=== PATIENT | female | born 1945 | race Caucasian/White ===

== ENCOUNTER 2019-03-13 06:04 | Inpatient (IN) ==
[~2019-03-13 06:04] MED LIST: Vancomycin 1,000 MG, Sodium Chloride IRRigation 1,000 ML IR ONE
[2019-03-13] MEDS ORDERED: NiCARdipine 2.5 MG/10 ML Syringe IVPB ONE (06:20)
[2019-03-13] MEDS ORDERED: Albuterol 2.5 MG/3 ML NEBULIZER IH PRN (06:21)
[2019-03-13] MEDS ORDERED: CeFAZolin Syr 2,000MG/20 ML 2,000 MG/20 ML SYRINGE IVPB ONE (06:21)
[2019-03-13] MEDS ORDERED: Heparin 1,000 UNITS/500 mL 500 ML ONE ×2 (06:22→07:22)
[2019-03-13] MEDS ORDERED: *HR* Etomidate 40 MG/20 ML VIAL IVP ONE (06:25)
[2019-03-13] MEDS ORDERED: Lidocaine -MPF 2% 2 ML VIAL ONE (06:25)
[2019-03-13] MEDS ORDERED: *HR* Succinylcholine 200 MG/10 ML VIAL IVP ONE (06:26)
[2019-03-13] MEDS ORDERED: *HR* Rocuronium Bromide 50 MG/5 ML VIAL ONE ×2 (06:26→10:36)
[2019-03-13] MEDS ORDERED: *HR* FentaNYL (PF) 100 MCG/2 ML VIAL ONE ×2 (06:29→12:35)
[2019-03-13] MEDS ORDERED: *HR* Midazolam HCl 5 MG/5 ML VIAL IVP ONE (06:30)
[2019-03-13] MEDS ORDERED: Norepinephrine 4 MG in 0.9 % Sodium Chloride 250 ML IVC PRN (06:30)
[2019-03-13] MEDS ORDERED: Ringers Solution, Lactated 1,000 ML IVC SCH ×2 (06:30→07:15)
[2019-03-13] MEDS ORDERED: *HR* PHENYLEPHRINE 1,000 MCG/10 ML SYRINGE IVP ONE ×3 (06:33→13:23)
[2019-03-13] MEDS ORDERED: *HR* Heparin 5,000 UNIT/ML VIAL ONE (06:36)
[2019-03-13] MEDS ORDERED: Lidocaine -MPF 2% 5 ML VIAL ONE (07:07)
[2019-03-13] MEDS ORDERED: EPHEDrine 50 MG/ML VIAL ONE ×2 (07:31→10:56)
[2019-03-13] MEDS ORDERED: Vancomycin 1,000 MG VIAL ONE ×2 (07:46→07:59)
[2019-03-13 09:23] LABS: ABG Base Excess -3 mEq/L (-2 to 3); ABG Chloride 110 mEq/L (98-107); ABG Glucose 103 mg/dL (60-95); ABG HCO3 23 mEq/L (21-27); ABG Ionized Calcium 1.11 mmol/L (1.15-1.35); ABG Oxygen Saturation 99 % (95-98); ABG PCO2 43 mmHg (35-45); ABG PH 7.33 pH Units (7.32-7.45); ABG PO2 134 mmHg (85-104); ABG TCO2 24 mEq/L (20-26)
[2019-03-13 10:51] LABS: ABG Base Excess -2 mEq/L (-2 to 3); ABG Chloride 107 mEq/L (98-107); ABG Glucose 147 mg/dL (60-95); ABG HCO3 23 mEq/L (21-27); ABG Ionized Calcium 1.21 mmol/L (1.15-1.35); ABG Oxygen Saturation 99 % (95-98); ABG PCO2 41 mmHg (35-45); ABG PH 7.36 pH Units (7.32-7.45); ABG PO2 132 mmHg (85-104); ABG TCO2 24 mEq/L (20-26)
[2019-03-13 12:04] LABS: ABG Base Excess -7 mEq/L (-2 to 3); ABG Chloride 110 mEq/L (98-107); ABG Glucose 182 mg/dL (60-95); ABG HCO3 20 mEq/L (21-27); ABG Ionized Calcium 1.17 mmol/L (1.15-1.35); ABG Oxygen Saturation 99 % (95-98); ABG PCO2 41 mmHg (35-45); ABG PH 7.29 pH Units (7.32-7.45); ABG PO2 136 mmHg (85-104); ABG TCO2 21 mEq/L (20-26)
[2019-03-13] MEDS ORDERED: Ondansetron 4 MG/2 ML VIAL IVP PRN ×2 (12:28→15:42)
[2019-03-13] MEDS ORDERED: *HR* HYDROmorphone (PF) 1 MG/ML SYRINGE IVP PRN (12:28)
[2019-03-13] MEDS ORDERED: *HR* OxyCODONE/APAP 5/325 TABLET PO PRN (12:28)
[2019-03-13] MEDS ORDERED: Naloxone 0.4 MG/ML INJ IVP PRN ×2 (12:28→15:42)
[2019-03-13] MEDS ORDERED: 0.9 % Sodium Chloride 500 ML IVC PRN (12:28)
[2019-03-13] MEDS ORDERED: Bupivacaine-MPF 0.5% 25 ML, FentaNYL (PF) 250 MCG in 0.9 % Sodium Chloride 80 ML EP SCH (12:30)
[2019-03-13] MEDS ORDERED: Sodium Bicarbonate 50 MEQ/50 ML VIAL ONE (13:04)
[2019-03-13 13:06] LABS: ABG Base Excess -10 mEq/L (-2 to 3); ABG Chloride 111 mEq/L (98-107); ABG Glucose 161 mg/dL (60-95); ABG HCO3 18 mEq/L (21-27); ABG Ionized Calcium 1.09 mmol/L (1.15-1.35); ABG Oxygen Saturation 99 % (95-98); ABG PCO2 48 mmHg (35-45); ABG PH 7.19 pH Units (7.32-7.45); ABG PO2 162 mmHg (85-104); ABG TCO2 20 mEq/L (20-26)
[2019-03-13 13:28] LABS: ABG Base Excess 0 mEq/L (-2 to 3); ABG Chloride 109 mEq/L (98-107); ABG Glucose 146 mg/dL (60-95); ABG HCO3 25 mEq/L (21-27); ABG Ionized Calcium 1.03 mmol/L (1.15-1.35); ABG Oxygen Saturation 100 % (95-98); ABG PCO2 39 mmHg (35-45); ABG PH 7.41 pH Units (7.32-7.45); ABG PO2 163 mmHg (85-104); ABG TCO2 26 mEq/L (20-26)
[2019-03-13] MEDS ORDERED: *HR* Labetalol 20 MG/4 ML SYRINGE IVP PRN (15:42)
[2019-03-13 16:13] LABS: VBG Ionized Calcium 1.23 mmol/L (1.15-1.35)
[2019-03-13 16:13] LABS: Basophils % 0.3 %; Eosinophils % 0.1 %; Hematocrit 41.2 % (35.3-44.9); Hemoglobin 14.1 g/dL (11.5-15.4); Immature Granulocytes % 0.4 % (0-4); Lymphocytes # 1.7 K/mcL (0.6-4.6); Lymphocytes % 11.5 %; Mean Corpuscular HGB Conc 34.2 g/dL (31.6-35.5); Mean Corpuscular Hemoglobin 30.8 pg (28.0-33.3); Monocytes # 0.8 K/mcL (0.0-1.3); Monocytes % 5.5 %; Neutrophils # 11.9 K/mcL (1.6-8.9); Platelet Count 193 K/mcL (140-400); Red Blood Count 4.58 M/mcL (3.82-4.97); Red Cell Distribution Width 13.3 % (11.5-14.5); Segmented Neutrophils % 82.2 %; White Blood Count 14.4 K/mcL (4.3-11.1)
[2019-03-13] MEDS: ceFAZolin 2,000 MG in 0.9 % Sodium Chloride 100 ML IVPB SCH (16:14)
[2019-03-13 16:19] LABS: INR 1.1; Prothrombin Time 12.5 Seconds (9.4-12.1)
[2019-03-13 16:22] LABS: Activated Partial Thrombo Time 31.9 Seconds (26.0-36.0)
[2019-03-13 16:24] LABS: BUN/Creatinine Ratio 32 (6-26); Blood Urea Nitrogen 24 mg/dL (8-23); Calcium 8.7 mg/dL (8.6-10.3); Carbon Dioxide 24 mEq/L (23-29); Chloride 111 mEq/L (98-107); Glucose 140 mg/dL (70-105); Magnesium 1.6 mg/dL (1.6-2.6); Osmolality,Calculated 304 (280-300); Sodium 144 mEq/L (136-145); eGFR For African Americans > 60 (> 60); eGFR For Non-African Americans > 60 (> 60)
[2019-03-13 17:33] LABS: Troponin I < 0.03 ng/mL (< 0.04)
[2019-03-13] MEDS ORDERED: Potassium Chloride 40 MEQ/200 ML BAG IVPB PRN (18:08)
[2019-03-13] MEDS ORDERED: Calcium Gluconate 1gm/50mL 1 GM/50 ML BAG IVPB PRN (18:08)
[2019-03-13] MEDS: *HR* Metoprolol 5 MG/5 ML VIAL IVP SCH (19:52)
[2019-03-13] MEDS: 0.9 % Sodium Chloride 1,000 ML IVC SCH (19:57)
[2019-03-13] MEDS: Budesonide/Formoterol 160/4.5 1 PUFF INH IH SCH (20:42)
[2019-03-14] MEDS: ceFAZolin 2,000 MG in 0.9 % Sodium Chloride 100 ML IVPB SCH (00:18)
[2019-03-14] MEDS: *HR* Metoprolol 5 MG/5 ML VIAL IVP SCH ×5 (00:18→23:40)
[2019-03-14 03:55] LABS: Basophils % 0.1 %; Hematocrit 37.5 % (35.3-44.9); Hemoglobin 12.8 g/dL (11.5-15.4); Immature Granulocytes % 0.3 % (0-4); Lymphocytes # 0.9 K/mcL (0.6-4.6); Lymphocytes % 6.1 %; Mean Corpuscular HGB Conc 34.1 g/dL (31.6-35.5); Mean Corpuscular Hemoglobin 30.8 pg (28.0-33.3); Mean Corpuscular Volume 90.4 fL (83.0-100.0); Mean Platelet Volume 9.2 fL (9.4-12.4); Monocytes % 6.4 %; Neutrophils # 12.9 K/mcL (1.6-8.9); Platelet Count 163 K/mcL (140-400); Red Blood Count 4.15 M/mcL (3.82-4.97); Red Cell Distribution Width 13.5 % (11.5-14.5); Segmented Neutrophils % 87.1 %; White Blood Count 14.8 K/mcL (4.3-11.1)
[2019-03-14 04:02] LABS: VBG Ionized Calcium 1.16 mmol/L (1.15-1.35)
[2019-03-14 04:12] LABS: Magnesium 2.4 mg/dL (1.6-2.6); Phosphorous 3.7 mg/dL (2.7-4.5)
[2019-03-14 04:14] LABS: BUN/Creatinine Ratio 23 (6-26); Blood Urea Nitrogen 21 mg/dL (8-23); Calcium 8.1 mg/dL (8.6-10.3); Carbon Dioxide 24 mEq/L (23-29); Chloride 111 mEq/L (98-107); Glucose 155 mg/dL (70-105); Osmolality,Calculated 304 (280-300); Potassium 4.2 mEq/L (3.5-5.1); Sodium 144 mEq/L (136-145); eGFR For African Americans > 60 (> 60); eGFR For Non-African Americans > 60 (> 60)
[2019-03-14] MEDS ORDERED: *HR* Heparin 5,000 UNIT/ML VIAL SQ SCH ×2 (06:00→18:00)
[2019-03-14] MEDS: Budesonide/Formoterol 160/4.5 1 PUFF INH IH SCH ×3 (08:11→20:49)
[2019-03-14] MEDS: 0.9 % Sodium Chloride 1,000 ML IVC SCH ×3 (08:30→20:18)
[2019-03-14] MEDS ORDERED: Ondansetron 4 MG/2 ML VIAL IVP PRN (08:34)
[2019-03-14] MEDS ORDERED: Naloxone 0.4 MG/ML INJ IVP PRN (08:34)
[2019-03-14] MEDS ORDERED: *HR* Labetalol 20 MG/4 ML SYRINGE IVP PRN (08:34)
[2019-03-14] MEDS ORDERED: Potassium Chloride 40 MEQ/200 ML BAG IVPB PRN (08:34)
[2019-03-14] MEDS ORDERED: Calcium Gluconate 1gm/50mL 1 GM/50 ML BAG IVPB PRN (08:34)
[2019-03-14] MEDS ORDERED: 0.9 % Sodium Chloride 1,000 ML IVC SCH (08:34)
[2019-03-14] MEDS ORDERED: Tiotropium 18 MCG inhalation IH SCH (10:00)
[2019-03-14] MEDS: Tiotropium 18 MCG inhalation IH SCH (10:04)
[2019-03-14] MEDS ORDERED: *HR* HYDROmorphone 2 MG/ML SYRINGE IVP PRN (12:54)
[2019-03-14] MEDS ORDERED: 0.9 % Sodium Chloride 500 ML IVC ONE (13:03)
[2019-03-14] MEDS: Bupivacaine-MPF 0.5% 25 ML, FentaNYL (PF) 250 MCG in 0.9 % Sodium Chloride 80 ML EP SCH (14:00)
[2019-03-14] MEDS: *HR* Heparin 5,000 UNIT/ML VIAL SQ SCH (16:12)
[2019-03-14] MEDS: Aspirin Enteric Coated 81 MG Tablet PO SCH (16:12)
[2019-03-14] MEDS ORDERED: Aspirin Enteric Coated 81 MG Tablet PO SCH (18:00)
[2019-03-15 03:35] LABS: VBG Ionized Calcium 1.15 mmol/L (1.15-1.35)
[2019-03-15 03:55] LABS: BUN/Creatinine Ratio 29 (6-26); Blood Urea Nitrogen 27 mg/dL (8-23); Calcium 8.4 mg/dL (8.6-10.3); Carbon Dioxide 27 mEq/L (23-29); Chloride 113 mEq/L (98-107); Glucose 142 mg/dL (70-105); Magnesium 2.3 mg/dL (1.6-2.6); Osmolality,Calculated 308 (280-300); Phosphorous 2.7 mg/dL (2.7-4.5); Potassium 4.1 mEq/L (3.5-5.1); Sodium 145 mEq/L (136-145); eGFR For African Americans > 60 (> 60); eGFR For Non-African Americans 60 (> 60)
[2019-03-15] MEDS: *HR* Metoprolol 5 MG/5 ML VIAL IVP SCH ×3 (04:23→17:12)
[2019-03-15] MEDS: *HR* Heparin 5,000 UNIT/ML VIAL SQ SCH ×2 (04:23→14:39)
[2019-03-15 04:25] LABS: Basophils % 0.1 %; Hematocrit 35.2 % (35.3-44.9); Immature Granulocytes % 0.5 % (0-4); Lymphocytes # 1.1 K/mcL (0.6-4.6); Lymphocytes % 5.9 %; Mean Corpuscular HGB Conc 34.1 g/dL (31.6-35.5); Mean Corpuscular Hemoglobin 31.5 pg (28.0-33.3); Mean Corpuscular Volume 92.4 fL (83.0-100.0); Mean Platelet Volume 9.4 fL (9.4-12.4); Monocytes # 1.3 K/mcL (0.0-1.3); Monocytes % 6.9 %; Neutrophils # 16.6 K/mcL (1.6-8.9); Platelet Count 167 K/mcL (140-400); Red Blood Count 3.81 M/mcL (3.82-4.97); Red Cell Distribution Width 13.9 % (11.5-14.5); Segmented Neutrophils % 86.6 %; White Blood Count 19.1 K/mcL (4.3-11.1)
[2019-03-15] MEDS: 0.9 % Sodium Chloride 1,000 ML IVC SCH (08:50)
[2019-03-15] MEDS ORDERED: 0.9 % Sodium Chloride 1,000 ML IVC SCH (09:43)
[2019-03-15] MEDS: Budesonide/Formoterol 160/4.5 1 PUFF INH IH SCH ×2 (09:56→20:00)
[2019-03-15] MEDS: Tiotropium 18 MCG inhalation IH SCH (09:57)
[2019-03-15] MEDS ORDERED: Bisacodyl 10 MG RECTAL SUPPOSITORY RC ONE (10:00)
[2019-03-15] MEDS: Aspirin Enteric Coated 81 MG Tablet PO SCH (17:58)
[2019-03-15] MEDS ORDERED: *HR* Heparin 5,000 UNIT/ML VIAL SQ SCH (18:00)
[2019-03-15] MEDS: Bupivacaine-MPF 0.5% 25 ML, FentaNYL (PF) 250 MCG in 0.9 % Sodium Chloride 80 ML EP SCH (22:22)
[2019-03-16 00:06] LABS: ABG Base Excess 7 mEq/L (-2 to 3); ABG HCO3 29 mEq/L (21-27); ABG Oxygen Saturation 92 % (95-98); ABG PCO2 34 mmHg (35-45); ABG PH 7.55 pH Units (7.32-7.45); ABG PO2 54 mmHg (85-104); ABG TCO2 30 mEq/L (20-26)
[2019-03-16] MEDS: *HR* Metoprolol 5 MG/5 ML VIAL IVP SCH ×4 (00:30→19:00)
[2019-03-16] MEDS: *HR* Heparin 5,000 UNIT/ML VIAL SQ SCH ×3 (05:02→19:00)
[2019-03-16 06:05] LABS: Basophils % 0.2 %; Hematocrit 33.3 % (35.3-44.9); Hemoglobin 11.3 g/dL (11.5-15.4); Immature Granulocytes % 1.2 % (0-4); Lymphocytes # 1.2 K/mcL (0.6-4.6); Lymphocytes % 6.5 %; Mean Corpuscular HGB Conc 33.9 g/dL (31.6-35.5); Mean Corpuscular Hemoglobin 30.5 pg (28.0-33.3); Mean Platelet Volume 9.5 fL (9.4-12.4); Monocytes % 5.4 %; Neutrophils # 15.6 K/mcL (1.6-8.9); Platelet Count 186 K/mcL (140-400); Red Cell Distribution Width 13.7 % (11.5-14.5); Segmented Neutrophils % 86.7 %; White Blood Count 17.9 K/mcL (4.3-11.1)
[2019-03-16 06:14] LABS: VBG Ionized Calcium 1.12 mmol/L (1.15-1.35)
[2019-03-16 06:24] LABS: Magnesium 2.4 mg/dL (1.6-2.6); Phosphorous 2.9 mg/dL (2.7-4.5)
[2019-03-16 06:29] LABS: BUN/Creatinine Ratio 38 (6-26); Blood Urea Nitrogen 25 mg/dL (8-23); Calcium 8.3 mg/dL (8.6-10.3); Carbon Dioxide 29 mEq/L (23-29); Chloride 115 mEq/L (98-107); Glucose 132 mg/dL (70-105); Osmolality,Calculated 324 (280-300); Potassium 2.8 mEq/L (3.5-5.1); Sodium 154 mEq/L (136-145); eGFR For African Americans > 60 (> 60); eGFR For Non-African Americans > 60 (> 60)
[2019-03-16] MEDS: Budesonide/Formoterol 160/4.5 1 PUFF INH IH SCH ×2 (07:38→22:27)
[2019-03-16] MEDS: Tiotropium 18 MCG inhalation IH SCH (07:40)
[2019-03-16] MEDS ORDERED: Isovue-370 500 ML BOTTLE IVP ONE (07:53)
[2019-03-16] MEDS ORDERED: Aminoglycoside Consult 1 EACH MC ONE (08:28)
[2019-03-16] MEDS ORDERED: Potassium Phosphate 44 MEQ in 0.9 % Sodium Chloride 250 ML IVPB PRN (09:01)
[2019-03-16] MEDS ORDERED: Potassium Chloride 40 MEQ, Lidocaine 1% 2 ML in 0.9 % Sodium Chloride 500 ML IVPB ONE (09:38)
[2019-03-16] MEDS: Ipratropium/Albuterol Neb 3 ML IH SCH ×3 (11:11→22:36)
[2019-03-16] MEDS: Cefepime HCl 1,000 MG in Water for inj. (sterile) 10 ML IVP SCH (12:07)
[2019-03-16] MEDS: MethylPREDNISolone 40 MG/ML VIAL IVP SCH (13:51)
[2019-03-16] MEDS ORDERED: MethylPREDNISolone 40 MG/ML VIAL IVP SCH (18:00)
[2019-03-16] MEDS: Aspirin Enteric Coated 81 MG Tablet PO SCH (19:00)
[2019-03-16] MEDS: Bupivacaine-MPF 0.5% 25 ML, FentaNYL (PF) 250 MCG in 0.9 % Sodium Chloride 80 ML EP SCH (22:46)
[2019-03-16] MEDS: Potassium Chloride 40 MEQ, Lidocaine 1% 2 ML in 0.9 % Sodium Chloride 500 ML IVPB PRN (22:59)
[2019-03-17] MEDS: Cefepime HCl 1,000 MG in Water for inj. (sterile) 10 ML IVP SCH ×3 (01:01→23:44)
[2019-03-17] MEDS: MethylPREDNISolone 40 MG/ML VIAL IVP SCH ×3 (01:02→23:44)
[2019-03-17] MEDS: *HR* Metoprolol 5 MG/5 ML VIAL IVP SCH ×5 (01:07→23:44)
[2019-03-17] MEDS: *HR* Heparin 5,000 UNIT/ML VIAL SQ SCH ×2 (01:34→18:04)
[2019-03-17 04:05] LABS: VBG Ionized Calcium 1.14 mmol/L (1.15-1.35)
[2019-03-17 04:08] LABS: Basophils % 0.1 %; Hematocrit 31.5 % (35.3-44.9); Hemoglobin 10.6 g/dL (11.5-15.4); Immature Granulocytes % 1.1 % (0-4); Lymphocytes # 0.8 K/mcL (0.6-4.6); Lymphocytes % 5.8 %; Mean Corpuscular HGB Conc 33.7 g/dL (31.6-35.5); Mean Corpuscular Hemoglobin 30.5 pg (28.0-33.3); Mean Corpuscular Volume 90.8 fL (83.0-100.0); Mean Platelet Volume 9.7 fL (9.4-12.4); Monocytes # 0.6 K/mcL (0.0-1.3); Neutrophils # 12.5 K/mcL (1.6-8.9); Platelet Count 202 K/mcL (140-400); Red Blood Count 3.47 M/mcL (3.82-4.97); Red Cell Distribution Width 14.2 % (11.5-14.5)
[2019-03-17] MEDS: Ipratropium/Albuterol Neb 3 ML IH SCH ×4 (04:14→21:47)
[2019-03-17 04:26] LABS: BUN/Creatinine Ratio 37 (6-26); Blood Urea Nitrogen 28 mg/dL (8-23); Calcium 8.3 mg/dL (8.6-10.3); Carbon Dioxide 26 mEq/L (23-29); Chloride 122 mEq/L (98-107); Glucose 158 mg/dL (70-105); Osmolality,Calculated 329 (280-300); Potassium 3.6 mEq/L (3.5-5.1); Sodium 155 mEq/L (136-145); eGFR For African Americans > 60 (> 60); eGFR For Non-African Americans > 60 (> 60)
[2019-03-17] MEDS: Potassium Chloride 40 MEQ, Lidocaine 1% 2 ML in 0.9 % Sodium Chloride 500 ML IVPB PRN (07:11)
[2019-03-17] MEDS ORDERED: Furosemide 20 MG/2 ML VIAL IVP ONE (08:26)
[2019-03-17] MEDS ORDERED: *HR* HYDROcodone/Acet 5/325 mg TABLET PO PRN ×2 (08:32)
[2019-03-17] MEDS ORDERED: Acetaminophen 325 MG TABLET PO PRN ×2 (08:32)
[2019-03-17] MEDS ORDERED: *HR* OxyCODONE Immed Rel 5 MG TABLET PO PRN ×2 (08:32)
[2019-03-17] MEDS: Budesonide/Formoterol 160/4.5 1 PUFF INH IH SCH ×2 (10:17→21:47)
[2019-03-17] MEDS: hydroCHLOROthiazide 25 MG TABLET PO SCH (11:09)
[2019-03-17] MEDS: Multivit/Ca/Min/Fe/FA 1 TAB TABLET PO SCH (11:10)
[2019-03-17] MEDS: Aspirin Enteric Coated 81 MG Tablet PO SCH (18:03)
[2019-03-18] MEDS: Ipratropium/Albuterol Neb 3 ML IH SCH (03:30)
[2019-03-18 05:48] LABS: Basophils # 0.1 K/mcL (0.0-0.2); Basophils % 0.3 %; Hematocrit 32.3 % (35.3-44.9); Hemoglobin 10.2 g/dL (11.5-15.4); Immature Granulocytes % 2.4 % (0-4); Lymphocytes # 1.1 K/mcL (0.6-4.6); Lymphocytes % 7.5 %; Mean Corpuscular HGB Conc 31.6 g/dL (31.6-35.5); Mean Corpuscular Hemoglobin 30.3 pg (28.0-33.3); Mean Corpuscular Volume 95.8 fL (83.0-100.0); Monocytes # 0.6 K/mcL (0.0-1.3); Monocytes % 3.7 %; Neutrophils # 13.1 K/mcL (1.6-8.9); Platelet Count 195 K/mcL (140-400); Red Blood Count 3.37 M/mcL (3.82-4.97); Red Cell Distribution Width 14.4 % (11.5-14.5); Segmented Neutrophils % 86.1 %; White Blood Count 15.2 K/mcL (4.3-11.1)
[2019-03-18] MEDS: *HR* Heparin 5,000 UNIT/ML VIAL SQ SCH (06:05)
[2019-03-18] MEDS: *HR* Metoprolol 5 MG/5 ML VIAL IVP SCH (06:05)
[2019-03-18 06:10] LABS: BUN/Creatinine Ratio 36 (6-26); Blood Urea Nitrogen 26 mg/dL (8-23); Calcium 8.2 mg/dL (8.6-10.3); Carbon Dioxide 22 mEq/L (23-29); Chloride 112 mEq/L (98-107); Glucose 153 mg/dL (70-105); Osmolality,Calculated 308 (280-300); Potassium 3.6 mEq/L (3.5-5.1); Sodium 145 mEq/L (136-145); eGFR For African Americans > 60 (> 60); eGFR For Non-African Americans > 60 (> 60)
[2019-03-18 07:19] VITALS: BP 153/80
[2019-03-18] MEDS: hydroCHLOROthiazide 25 MG TABLET PO SCH (07:31)
[2019-03-18] MEDS: Multivit/Ca/Min/Fe/FA 1 TAB TABLET PO SCH (07:32)
== END 2019-03-18 09:44 | disposition home or self-care (01) | DRG 268 ==
LOC: SAMDAY 06:04 → ICNU 15:40 → 2NNU 03-14 17:55
PROVIDERS: ADMIT Surgery; ATTEND Surgery